=== PATIENT | male | born 1995 | race Caucasian/White ===

== ENCOUNTER 2017-12-13 19:34 | Emergency (ER) | payer BC ==
[~2017-12-13] VITALS: Ht 165.1 cm; Wt 68.2 kg
[2017-12-13 19:44] VITALS: TEMP 96.9
[2017-12-13] MEDS ORDERED: OXYCODONE H5 MG/5 ML PO (23:29)
[2017-12-13] MEDS ORDERED: AUGMENTIN 400100 ML PO (23:30)
[2017-12-13 23:53] VITALS: BP 159/87; PULSE 77
== END 2017-12-13 23:53 | disposition home or self-care (01) ==
LOC: COL.ER 19:34
DX: S02.609B Fracture of mandible, unspecified, initial encounter for open fracture (principal); Z90.89 Acquired absence of other organs; W51.XXXA Accidental striking against or bumped into by another person, initial encounter; Y93.62 Activity, american flag or touch football; Y92.321 Football field as the place of occurrence of the external cause
CPT/HCPCS: J0295; J1170